=== PATIENT | female | born 1990 | race Caucasian/White ===

== ENCOUNTER 2019-04-15 02:40 | Emergency (ER) | payer BC ==
[~2019-04-15] VITALS: Ht 160 cm; Wt 68.2 kg
[2019-04-15 02:48] VITALS: BP 118/68; TEMP 97.6
[2019-04-15 03:57] LABS: BASO # 0.1 (0.0-0.2); BASO % 0.9 % (0.0-2.0); EOS # 0.1 (0.0-0.7); EOS % 0.8 % (0-4.0); GRAN # 3.8 (1.4-6.5); GRAN % 59.1 % (42.2-75.2); HEMOGLOBIN 12.9 g/dl (12.5-16.0); LYMPH # 2.1 (1.2-3.4); LYMPH % 32.1 % (20.0-51.0); MEAN CELL VOLUME 89 fl (80.0-100.0); MEAN CORPUSCULAR HEMOGLOBIN 30 pg (27.0-31.0); MEAN CORPUSCULAR HGB CONC 34 g/dl (33.0-37.0); MEAN PLATELET VOLUME 9.9 fl (7.4-10.4); MONO # 0.4 (0.1-0.6); MONO % 6.9 % (1.7-9.3); PLATELET COUNT 167 K/mm3 (130-400); RED BLOOD COUNT 4.28 M/mm3 (4.10-5.30); REDCELL DISTRIBUTION WIDTH-CV 11.6 % (11.5-14.5)
[2019-04-15 04:05] LABS: ALBUMIN 4.2 gm/dL (3.5-5.0); BILIRUBIN,TOTAL 0.2 mg/dL (0.0-1.0); CALCIUM 9.1 mg/dL (8.4-10.2); CREATININE, serum 1.01 (0.52-1.25); POTASSIUM 3.8 mmol/L (3.4-5.0)
[2019-04-15 05:27] VITALS: PULSE 78
== END 2019-04-15 05:27 | disposition home or self-care (01) ==
LOC: COL.ER 02:40
PROVIDERS: Emergency Medicine
DX: R51 Headache (principal); Z90.49 Acquired absence of other specified parts of digestive tract
CPT/HCPCS: J0780; J1200; J7030

== ENCOUNTER 2020-10-07 20:20 | Outpatient (CLI) | payer BC ==
[~2020-10-07] VITALS: Ht 175.3 cm; Wt 83.2 kg
[2020-10-07 20:40] VITALS: BP 137/63; PULSE 91
[2020-10-07] MEDS ORDERED: PRENATAL MVI (20:45)
--- NOTE | 2020-10-07 21:20 | NUR ---
Patient ambulatory to LDR4 with , she is tearful and reports decreased movement over the last 3 hours. She states that was baby was active this morning and reports having an ultrasound in the office today. EFMs explained and applied and FHR 130 bpm and reactive. When monitors placed, movement noted by this nurse and patient. Patient denies contractions, leaking of fluid, or bright red vaginal bleeding. VSS. Assessment completed. 2109 NST reactive. movement felt by patient. Patient expresses reassurance. Discharge instructions reviewed. 2119 Patient discharged home in stable condition.
[2020-10-12] MEDS ORDERED: VALTREX1 GM PO (08:02)
== END 2020-10-07 21:40 | disposition home or self-care (01) ==
LOC: LDRO 20:20 → LDR 20:30 → LDRO 21:40
DX: O36.8130 Decreased fetal movements, third trimester, not applicable or unspecified (principal); Z3A.36 36 weeks gestation of pregnancy

== ENCOUNTER 2020-10-12 08:42 | Outpatient (CLI) | payer BC ==
[~2020-10-12] VITALS: Ht 172.7 cm; Wt 83.6 kg
[~2020-10-12 08:42] MED LIST: PRENATAL MVI; VALTREX1 GM PO
--- NOTE | 2020-10-12 08:50 | NUR ---
0850-Patient ambulatory to LR 5 for scheduled external version. Changed into gown and placed on EFM, reactive FHR . VSS. Dr. Fitzpatrick to room. Bedside sono per MD. Vertex confirmed per MD. Orders to obtain reactive FHR strip for 20min. Dr. Fitzpatrick reviews discharge and follow up instructions with patient. 0925-Patient off EFM per orders. Discharge instructions reviewed. 0935-Ambulatory off unit with spouse.
[2020-10-12] MEDS ORDERED: CALCIUM 600MG+D1 TAB PO (09:07)
[2020-10-12 09:15] VITALS: BP 123/76; PULSE 93
== END 2020-10-12 09:35 ==
LOC: LDRO 08:42 → LDR 08:44 → LDRO 09:35
DX: O32.1XX0 Maternal care for breech presentation, not applicable or unspecified (principal); Z3A.37 37 weeks gestation of pregnancy
CPT/HCPCS: OP

== ENCOUNTER → 2020-11-07 | Outpatient (CLI) | payer BC ==
[~2020-11-07] MED LIST changes: +CALCIUM 600MG+D1 TAB PO; +IBU800 M1 PO
== END ==
LOC: ZCOL.LAB 12:00
DX: Z20.822 Contact with and (suspected) exposure to COVID-19 (principal)

== ENCOUNTER 2020-11-08 06:49 | Inpatient (IN) | payer BC ==
[~2020-11-08] VITALS: Ht 172.7 cm; Wt 84.1 kg
[2020-11-08] VITALS (51 sets, daily range): BP systolic 99–143; BP diastolic 56–100; PULSE 57–117; TEMP 97.2–98.4
[~2020-11-08 06:49] MED LIST changes: -IBU800 M1 PO
--- NOTE | 2020-11-08 06:50 | NUR ---
Patient arrives ambulatory with spouse with complaints of contractions since yesterday's office appointment that have worsened overnight. Patient reports they are every four minutes. Denies vaginal bleeding or leaking of fluid. Reports normal movement. Patient screened for COVID19. Negative test from yesterday. Support person screened. Patient changes into gown, EFM explained and placed. VS obtained. 0700- SVE per A. Des SUAREZ /-2. Patient repositioned WL. Breathing through contractions. Assessment completed, updated on plan of care. Denies questions. See physician notification.
--- NOTE | 2020-11-08 07:30 | NUR ---
Dr. Christianson on unit, reviews FHR strip. Orders to admit patient for labor.
[2020-11-08 08:02] LABS: BASO % 0.2 % (0.0-2.0); GRAN # 9.5 (1.4-6.5); GRAN % 81.9 % (42.2-75.2); HEMOGLOBIN 10.9 g/dl (12.5-16.0); LYMPH # 1.3 (1.2-3.4); LYMPH % 11.6 % (20.0-51.0); MEAN CELL VOLUME 87 fl (80.0-100.0); MEAN CORPUSCULAR HEMOGLOBIN 27 pg (27.0-31.0); MEAN CORPUSCULAR HGB CONC 32 g/dl (33.0-37.0); MEAN PLATELET VOLUME 10.3 fl (7.4-10.4); MONO # 0.7 (0.1-0.6); MONO % 5.6 % (1.7-9.3); PLATELET COUNT 193 K/mm3 (130-400); RED BLOOD COUNT 3.99 M/mm3 (4.10-5.30); REDCELL DISTRIBUTION WIDTH-CV 13.6 % (11.5-14.5)
[2020-11-08 08:13] LABS: HEMATOCRIT 34.6 % (37.0-47.0)
--- NOTE | 2020-11-08 10:35 | NUR ---
Rausch catheter placed. Pt repositioned RL with LLS. Pitocin increased to 4mU. 1040-RN remains at bedside. Pt verbalizes feeling faint and dizzy. MHR noted in the 50s. LR bolus infusing. Zofran and ephedrine given IV. See EMAR. FHR noted in the 90s-100s. Pt repositioned LL with RLS. 1048-RN remains at bedside. Pt verbalizes feeling "better." FHR improved with interventions.
--- NOTE | 2020-11-08 14:55 | NUR ---
Dr. Christianson at bedside. SVE per provider /-2. IUPC placed. Orders to increase pitocin. 1512-Provider remains on unit. Continues to watch FHR strip. No new orders at this time.
--- NOTE | 2020-11-08 19:02 | NUR ---
1902- THIS RN IN THE ROOM AND PATIENT BEGAN PUSHING. THIS RN REMAINS AT BEDSIDE DURING THIS TIME. 1905- MASSEY REMOVED WITH 100 ML NOTED IN THE CONTAINER. THIS RN CONTINUES PUSHING WITH PATIENT AT THIS TIME. 191- ADVISED PATIENT TO STOP PUSHING I NEEDED TO CALLED THE PROVIDER TO GET HER HERE FOR DELIVERY. 1913- PROVIDER NOTIFIED OF NEED FOR HER TO BE HERE FOR DELIVERY. SEE PHSYICIAN NOTIICATION. 1916- RESUMED PUSHING WITH PATIENT INTERMITTENTLY AND NOT WITH FULL FORCE ON PUSHES UNTIL PROVIDER ARRIVES. ADVISED ALL STAFF THAT PROVIDER WAS ON HER WAY FOR DELIVERY SO THEY COULD PREPARE THEMSELVES FOR DELIVERY. 192- PROVIDER IN THE ROOM AND PATIENT PUSHED ONE TIME FOR PROVIDER AND SHE STATED SHE COULD STOP AND THE ROOM AND PATIENT WERE SET UP AND PREPPED FOR DELIVERY. 192- OF VIABLE MALE INFANT. INFANT PLACED TO MOTHERS ABDOMEN WHERE NURSERY NURSE ASSUMES CARE AT THIS TIME. INFANT SUCTIONED AND DELAYED CORD CLAMPING WAS PROVIDED PER PARENTS REQUEST. FATHER CUT THE CORD AND TO MOTHERS CHEST FOR SKIN TO SKIN. PITOCIN TURNED OFF AT THIS POINT REPROGRAMMED FOR DELIVERY OF PLACENTA. 192- OF PLACENTA. PITOCIN STARTED PER PROTOCOL AT 333ML/HR. FUNDUS MASSAGED TO FIRM BY THIS RN WITH PROVIDER UTILIZING INTERNAL MASSAGE TO HELP LOWER UTERINE SEGMENT TO BEGIN FIRMING. MODERATE ABOUT OF LOCHIA NOTED. FUNDUS MASSAGED TO FIRM AND BLEEDING TO A MINIMUM. 2ND DEGREE TEAR NOTED BY PROVIDER AND REPAIRED DURING THIS TIME. THIS RN PROVIDED INTERMITTENT FUNDAL MASSAGE 2 TIMES DURING THE REPAIR TIME TO MAKE SURE UTERINE TONE WAS FIRM AND IT WAS. PROVIDER STRAIGHT CATHED PATIENT WHEN DONE WITH REPAIR. REPAIR FINISHED AND PATIENT AND ROOM CLEANED UP AND PUT BACK TOGETHER. PROVIDER NOTED EBL TO BE 300. 1945- VITALS STABLE, FUNDUS FIRM, NEW CHUX, PERIPAD AND ICEPACK TO PERINEUM. PATIENT STABLE AND DENIES NEEDS. RECOVERY STARTED.
[2020-11-09 03:05] VITALS: BP 114/49; PULSE 75; TEMP 98
[2020-11-09 07:01] VITALS: BP 116/45; PULSE 81; TEMP 97.7
[2020-11-09] MEDS ORDERED: IBU800 M1 PO (08:11)
[2020-11-09 11:30] VITALS: BP 132/69; PULSE 77; TEMP 97.9
[2020-11-09 16:00] VITALS: BP 121/72; PULSE 77; TEMP 97.7
[2020-11-09 19:42] VITALS: BP 120/66; PULSE 88; TEMP 98.4
[2020-11-10 07:58] VITALS: BP 114/76; PULSE 76; TEMP 98.1
--- NOTE | 2020-11-10 12:38 | NUR ---
Initial visit; Parents thanked [facility] Consultant for offering congratulations and God's blessings for the of their son. Csm Consultant thanked family for choosing [facility].
== END 2020-11-10 12:56 | disposition home or self-care (01) | DRG 807 ==
LOC: LDRO 06:49 → LDR 07:35 → OB 22:45
PROVIDERS: ADMIT Obstetrics & Gynecology
PROC: 10E0XZZ Delivery of Products of Conception, External Approach (ICD-10-PCS; principal; 2020-11-08)
PROC: 0KQM0ZZ Repair Perineum Muscle, Open Approach (ICD-10-PCS; 2020-11-08)
DX: O48.0 Post-term pregnancy (principal); Z37.0 Single live birth; O62.0 Primary inadequate contractions; O70.1 Second degree perineal laceration during delivery; Z3A.41 41 weeks gestation of pregnancy
CPT/HCPCS: J2405; J2590; J7120

== ENCOUNTER 2021-04-01 18:37 | Emergency (ER) | payer OTHER, BC ==
[~2021-04-01] VITALS: Ht 172.7 cm; Wt 70.5 kg
[~2021-04-01 18:37] MED LIST changes: +IBU800 M1 PO
[2021-04-01 19:05] VITALS: TEMP 98
[2021-04-01 21:39] VITALS: BP 124/80; PULSE 86
== END 2021-04-01 21:39 | disposition home or self-care (01) ==
LOC: COL.ER 18:37
DX: S89.92XA Unspecified injury of left lower leg, initial encounter (principal); S89.91XA Unspecified injury of right lower leg, initial encounter; S50.312A Abrasion of left elbow, initial encounter; S60.417A Abrasion of left little finger, initial encounter; V49.40XA Driver injured in collision with unspecified motor vehicles in traffic accident, initial encounter

== ENCOUNTER 2023-02-26 03:39 | Inpatient (IN) | payer BC ==
[~2023-02-26] VITALS: Ht 172.7 cm; Wt 83.1 kg
[2023-02-26] VITALS (12 sets, daily range): BP systolic 97–120; BP diastolic 57–82; PULSE 61–85; TEMP 97.2–98.3
--- NOTE | 2023-02-26 03:45 | NUR ---
PT TO UNIT AMBULATORY WITH SPOUSE WITH COMPLAINTS OF CTXs. PT IS A G3L1 AT 41+ WEEKS. ORIENTED TO ROOM, ASSISTED INTO GOWN. PT MOANING WITH CTXs, SVE OF 8-, EFM X2 APPLIED, VS OBTAINED. PT STATES GOOD MOVEMENT, CTX STARTING AT 0130 THIS MORNING, DENIES LOF OR VAGINAL BLEEDING. PT REQUESTS EPIDURAL. WILL CONTACT PHYSICAN AND ANESTHESIA.
--- NOTE | 2023-02-26 04:30 | NUR ---
0434- SPONTANEOUS VAGINAL DELIVERY OF VIABLE BABY BOY. BABY TO MOTHER'S ABDOMEN. DRIED AND STIMULATED. SPONTANEOUS CRY NOTED. BABY'S COLOR REMAINS PURPLE WITH VIGOROUS CRY. CORD CLAMPED BY DR. HAYES AND CUT BY DIMITRI, BABY TO WARMER FOR FURTHER ASSESSMENT BY DANIELA WOMACK. 0440- SPONTANEOUS DELIVERY OF INTACT PLACENTA. PITOCIN STARTED AT 333ML/HR PER PROTOCOL. DR. HAYES BEGINS REPAIR OF 2ND DEGREE LACERATION. 0450- RECOVERY STARTED.
[2023-02-26 04:39] LABS: BASO % 0.3 % (0.0-2.0); EOS % 0.2 % (0.0-4.0); GRAN # 8.6 K/mm3 (1.4-6.5); GRAN % 75.2 % (42.2-75.2); HEMATOCRIT 40.5 % (37.0-47.0); HEMOGLOBIN 13.9 g/dl (12.5-16.0); LYMPH # 1.9 K/mm3 (1.2-3.4); LYMPH % 16.5 % (20.0-51.0); MEAN CELL VOLUME 89 fl (80.0-100.0); MEAN CORPUSCULAR HEMOGLOBIN 31 pg (27-31); MEAN CORPUSCULAR HGB CONC 34 g/dl (33.0-37.0); MEAN PLATELET VOLUME 10.1 fl (7.4-10.4); MONO # 0.8 K/mm3 (0.1-0.6); MONO % 7.2 % (1.7-9.3); PLATELET COUNT 224 K/mm3 (130-400); RED BLOOD COUNT 4.54 M/mm3 (4.10-5.30); REDCELL DISTRIBUTION WIDTH-CV 13.4 % (11.5-14.5)
[2023-02-26] MEDS ORDERED: PRENATAL TABLET PO (05:59)
--- NOTE | 2023-02-26 07:05 | NUR ---
PT AMBULATORY TO BATHROOM. PT NOT ABLE TO VOID AT THIS TIME. PERICARE DONE. CHANGED INTO CLEAN GOWN. CLEAN PAD AND UNDERWEAR PLACED. PT AMBULATORY TO ROOM 216.
--- NOTE | 2023-02-26 09:40 | NUR ---
THIS RN GIVES REPORT TO ELIZA LATHAM RN
[2023-02-27 08:34] VITALS: BP 105/69; PULSE 84; TEMP 98
[2023-02-27] MEDS ORDERED: IBU800 M1 PO (09:33)
== END 2023-02-27 11:40 | disposition home or self-care (01) | DRG 806 ==
LOC: LDRO 03:39 → OB 03:59 → LDR 03:59 → OB 08:05
PROVIDERS: Obstetrics & Gynecology; ADMIT Obstetrics & Gynecology
PROC: 10E0XZZ Delivery of Products of Conception, External Approach (ICD-10-PCS; principal; 2023-02-26)
PROC: 0KQM0ZZ Repair Perineum Muscle, Open Approach (ICD-10-PCS; 2023-02-26)
DX: O48.0 Post-term pregnancy (principal); O98.32 Other infections with a predominantly sexual mode of transmission complicating childbirth; Z37.0 Single live birth; O70.1 Second degree perineal laceration during delivery; A60.09 Herpesviral infection of other urogenital tract; Z3A.41 41 weeks gestation of pregnancy
CPT/HCPCS: J2590; J7120